=== PATIENT | male | born 2000 ===

== ENCOUNTER 2021-12-28 13:02 | Emergency (ER) | payer SELFPAY ==
[2021-12-28 14:59] VITALS: BP 130/80
[2021-12-28] MEDS ORDERED: ALBUTEROL 2.5 MG/3 ML NEBU IH ONE (14:59)
--- NOTE | 2021-12-28 15:03 | Emergency Department Report ---
Chief Complaint: Dyspnea/Respdistress Stated Complaint: SHORNTESS OF BREATH Time Seen by Provider: 12/28/21 14:58 - HPI History of Present Illness: 21 yo comes to er with mother from urgent care he presented there with headache was given decadron- pain improved he has a/c migraines and family hx of the same neuro intact no n/v/ photophobia no head trauma he has asthma and had sob covid neg - ROS Review of Systems: none - Exam Vital Signs: Vital Signs 12/28/21 14:58 Temperature 98.3 F Pulse Rate 79 Respiratory 18 Rate Blood Pressure 130/80 [Right] O2 Sat by Pulse 98 Oximetry Physical Exam: a/o no focal def lungs cta abd snt ambulatory taking po nad MSE screening note: Focused history and physical exam performed. Due to findings the following was ordered: Mother wants to take pt to PCP and not see ER - given headache is better and his covid was neg MSE to PCP Vital Signs 12/28/21 14:58 Temperature 98.3 F Pulse Rate 79 Respiratory 18 Rate Blood Pressure 130/80 [Right] O2 Sat by Pulse 98 Oximetry ED Disposition for MSE Clinical Impression: Chronic headache Disposition: 01 HOME / SELF CARE / HOMELESS Is pt being admited?: No Does the pt Need Aspirin: No Condition: Stable Referrals: SUKI BENITEZ MD [Staff Physician] - 3-5 Days Time of Disposition: 15:03
== END 2021-12-28 15:00 | disposition home or self-care (01) ==
LOC: ED 13:02
DX: R51.9 Headache, unspecified (principal)
CPT/HCPCS: 99281; 99282